=== PATIENT | male | born 1935 | race Caucasian/White ===

== ENCOUNTER 2018-10-09 11:48 | Observation (INO) | payer MEDICARE, OTHER ==
--- NOTE | 2018-10-09 12:19 | ED Physician Documentation ---
PD HPI CHEST PAIN - Stated complaint Stated Complaint: CHEST PRESSURE - Chief complaint Chief Complaint: Cardiac - History obtained from History obtained from: Patient, Family (Daughter) - History of Present Illness Timing - onset: Today (This is an 82-year-old gentleman without history of coronary disease, remotely negative stress test. He does have a history of atrial fibrillation on warfarin. He describes nonradiating anterior chest pressure that woke him up at 3 AM and since then has somewhat improved. Its worse with motion more than exertion. He is never had this before. Denies recent travel, pedal edema, calf pain. He says he has chronic lung congestion but nothing new or acute there. He says he was fine last night, the daughter says he was a little off last night though.) Review of Systems Ten Systems: 10 systems reviewed and negative Constitutional: reports: Fatigue. denies: Fever, Chills Cardiac: reports: Chest pain / pressure. denies: Palpitations, Pedal edema, Calf pain Respiratory: reports: Dyspnea. denies: Cough GI: denies: Abdominal Pain, Nausea, Vomiting PD PAST MEDICAL HISTORY - Past Medical History Past Medical History: Yes Cardiovascular: Atrial fibrillation - Present Medications Home Medications: Ambulatory Orders Medication Instructions Recorded Confirmed Atorvastatin [Lipitor] 20 mg PO DAILY 10/09/18 10/09/18 Losartan Potassium 50 mg PO DAILY 10/09/18 10/09/18 Metoprolol Succinate/Hctz 200 mg PO DAILY 10/09/18 10/09/18 [Metoprolol ER-Hctz 100-12.5 mg] Terazosin [Hytrin] 10 mg PO DAILY PM 10/09/18 10/09/18 Warfarin [Coumadin] 7 mg PO DAILY PM 10/09/18 - Allergies Allergies/Adverse Reactions: Allergies Allergy/AdvReac Type Severity Reaction Status Date / Time No Known Drug Allergies Allergy Verified 10/09/18 12:05 - Social History Does the pt smoke?: No Does the pt drink ETOH?: No Does the pt have substance abuse?: No PD ED PE NORMAL - Vitals Vital signs reviewed: Yes - General General: Alert and oriented X 3, No acute distress - HEENT HEENT: PERRL, EOMI, Pharynx benign - Neck Neck: Supple, no meningeal sign, No bony TTP - Cardiac Cardiac: Other (Irregularly irregular without murmur) - Respiratory Respiratory: No respiratory distress, Clear bilaterally - Abdomen Abdomen: Soft, Non tender - Back Back: No CVA TTP, No spinal TTP - Derm Derm: Normal color, Warm and dry, Other (Quite santoro) - Extremities Extremities: Other (Trace pitting pedal edema, no calf pain.; Symmetric) - Neuro Neuro: Alert and oriented X 3, Normal speech Results - Vitals Vitals: Vital Signs - 24 hr 10/09/18 10/09/18 12:01 12:35 Temperature 36.8 C Heart Rate 83 Respiratory 20 Rate Blood Pressure 161/92 H Blood Pressure 146/97 H [Left] O2 Saturation 95 Oxygen O2 Source Room air - EKG (time done) 1154 Rate: Rate (enter#) (84) Rhythm: Atrial fibrillation [place]: Normal QRS: Normal Ischemia: Non specific changes (He has slight ST elevation in V2 and V3 which is not diagnostic for STEMI. No clear reciprocal changes.) Compare to prior EKG: Old EKG unavailable Computer interpretation: Agree with computer - Labs Labs: Laboratory Tests 10/09/18 10/09/18 10/09/18 12:15 12:15 12:15 WBC 8.5 RBC 4.92 Hgb 14.3 Hct 43.7 MCV 88.8 MCH 29.1 MCHC 32.7 RDW 14.5 Plt Count 130 MPV 11.2 Neut # (Auto) 5.8 Lymph # (Auto) 1.4 L Heard # (Auto) 1.1 H Eos # (Auto) 0.1 Baso # (Auto) 0.0 Absolute Nucleated RBC 0.00 Nucleated RBC % 0.0 PT INR Sodium 138 Potassium 3.9 Chloride 100 L Carbon Dioxide 25 Anion Gap 13.0 BUN 19 Creatinine 0.9 Estimated GFR (MDRD) 81 L Glucose 141 H Calcium 9.0 Total Bilirubin 2.1 H AST 23 ALT 22 Alkaline Phosphatase 64 Troponin I < 0.04 Troponin I High Sens 8.7 Total Protein 6.9 Albumin 4.0 Globulin 2.9 Albumin/Globulin Ratio 1.4 Lipase 41 10/09/18 10/09/18 13:01 13:25 WBC RBC Hgb Hct MCV MCH MCHC RDW Plt Count MPV Neut # (Auto) Lymph # (Auto) Heard # (Auto) Eos # (Auto) Baso # (Auto) Absolute Nucleated RBC Nucleated RBC % PT 36.5 H INR 3.3 H Sodium Potassium Chloride Carbon Dioxide Anion Gap BUN Creatinine Estimated GFR (MDRD) Glucose Calcium Total Bilirubin AST ALT Alkaline Phosphatase Troponin I < 0.04 Troponin I High Sens 8.1 Total Protein Albumin Globulin Albumin/Globulin Ratio Lipase - Rads (name of study) 1v chest Radiology: EMP read contemporaneously (Diffuse increased interstitial markings of unclear chronicity and calcified pleural plaques.) PD MEDICAL DECISION MAKING - ED course ED course: We discussed the findings on chest x-ray, and intermittently he was a little tachypneic here. 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 He feels no more short of breath or congested than normal. On reevaluation after the first high-sensitivity troponin, he pretty much had no chest pressure, a second troponin was ordered. The second troponin was negative. Still a high risk case and I spoke with Dr. Ramirez for admission, the patient vacillated and wondered about being transferred to [place], however they were full as far as telemetry beds go and he agreed to observation here. Departure - Departure Disposition: ED Place in Observation Clinical Impression: Chest pain Qualifiers: Chest pain type: unspecified Qualified Code(s): R07.9 - Chest pain, unspecified Condition: Fair
[2018-10-09 12:31] LABS: BASOPHILS % (AUTO) 0.2 %; EOSINOPHILS # (AUTO) 0.1 10^3/uL (0.0-0.7); EOSINOPHILS % (AUTO) 1.6 %; HGB - HEMOGLOBIN 14.3 g/dL (14.0-18.0); LYMPHOCYTES # (AUTO) 1.4 10^3/uL (1.5-3.5); MEAN CORPUSCULAR HEMOGLOBIN 29.1 pg (27.0-31.0); MEAN CORPUSCULAR HGB CONC 32.7 g/dL (32.0-36.0); MEAN CORPUSCULAR VOLUME 88.8 fL (80.0-94.0); MEAN PLATELET VOLUME 11.2 fL (7.4-11.4); MONOCYTES # (AUTO) 1.1 10^3/uL (0.0-1.0); MONOCYTES % (AUTO) 13.3 %; NEUTROPHILS # (AUTO) 5.8 10^3/uL (1.5-6.6); NEUTROPHILS % (AUTO) 67.6 %; PLT - PLATELET COUNT 130 10^3/uL (130-450); RED BLOOD COUNT 4.92 10^6/uL (4.70-6.10); RED CELL DISTRIBUTION WIDTH 14.5 % (12.0-15.0); WHITE BLOOD COUNT 8.5 x10^3/uL (4.8-10.8)
[2018-10-09 12:46] LABS: ALBUMIN/GLOBULIN RATIO 1.4 (1.0-2.2); BILIRUBIN,TOTAL 2.1 mg/dL (0.2-1.0); CREATININE 0.9 mg/dL (0.6-1.2); TOTAL PROTEIN 6.9 g/dL (6.7-8.2)
--- NOTE | 2018-10-09 12:48 | XRAY Report ---
Reason: Chest Pain Procedure Date: 10/09/2018 Accession Number: [id number] / [id number] Procedure: XR - Chest 1 View X-Ray CPT Code: 28449 FULL RESULT: EXAM: CHEST RADIOGRAPHY EXAM DATE: 10/09/2018 12:34 PM. CLINICAL HISTORY: Chest Pain. COMPARISON: None. TECHNIQUE: 1 view. FINDINGS: Lungs/Pleura: Increased interstitial markings diffusely. Pleural calcifications along the diaphragm. No pleural effusion. No pneumothorax. Mediastinum: Cardiomegaly. Ectatic aorta. Other: None. IMPRESSION: 1. Diffuse increased interstitial markings acute versus chronic differential includes infectious, edema. There are calcified pleural plaques. 2. Cardiomegaly RADIA
[2018-10-09] MEDS ORDERED: NITROGLYCERIN SL 0.4 MG TABLET SL STA (13:00)
[2018-10-09] MEDS ORDERED: ASPIRIN CHEW 81 MG TABLET PO STA (13:00)
[2018-10-09 13:22] LABS: TROPONIN I < 0.04 ng/mL (<0.49)
[2018-10-09 13:25] LABS: INR 3.3 (0.8-1.2); PT - PROTHROMBIN TIME 36.5 secs (9.9-12.6)
[2018-10-09 13:51] LABS: TROPONIN I < 0.04 ng/mL (<0.49)
[2018-10-09] MEDS ORDERED: ACETAMINOPHEN 325 MG TABLET PO PRN (14:03)
[2018-10-09] MEDS ORDERED: SODIUM CHLORIDE FLUSH 0.9% 10 ML SYRINGE IVP PRN (14:03)
[2018-10-09] MEDS ORDERED: oxyCODONE 5 MG TABLET PO PRN (15:15)
[2018-10-09] MEDS ORDERED: ONDANSETRON 4 MG/2 ML VIAL IVP PRN (15:15)
[2018-10-09] MEDS ORDERED: ONDANSETRON ODT 4 MG TABLET TL PRN (15:15)
--- NOTE | 2018-10-09 15:46 | HISTORY & PHYSICAL EXAMINATION ---
Chief Complaint - Chief Complaint Chief Complaint: Substernal chest pain History of Present Illness - Admitted From Admitted From:: Home - History Obtained From Records Reviewed: Spoke with shingle packer Dr. Clemente Hall to obtain pertinent cardiac hx History obtained from: Patient - History of Present Illness HPI Comment/Other: This pleasant gentleman is an 82yo with a PMH of restrictive lung disease, A- fib, Mild mitral regurg, and HDL who presents to the ED today with substernal chest pain. This pain woke him from sleep around 0300 and continued intermittently throughout the morning and early afternoon. It did not radiate to arms, back or abdomen. He did not notice any changes in his breathing. The pain is described as a "knot" or dull ache that is worsened by exertion and resolves with rest. At maximal intensity, he rates the pain a 4-5/10. He took pepto- bismal at home with moderate relief, but not total resolution. He did not exper ience any nausea, vomiting or diaphoresis associated with this chest pain. He has never experienced this type of chest pain before. He denies ever having an NE, diabetes, COPD or cancer of any kind. History - Past Medical History Cardiovascular: reports: High cholesterol, Coronary artery disease, Atrial fibrillation, Other (Prior Echo 06/2017 shows an EF of 58%, mod pulm HTN, and mild mitral regurg) Respiratory: reports: Pneumonia Neuro: reports: None Endocrine/Autoimmune: reports: None GI: reports: None. denies: GERD : reports: None HEENT: reports: None, Macular degeneration (diagnosed in L eye 6 months ago) Psych: reports: None. denies: Depression, Anxiety Musculoskeletal: reports: None Derm: reports: None MRSA Hx?: No - Past Surgical History General: reports: Other (2 ruptured inguinal hernia repairs) - Family & Social History Family History: Mother: (denies any cardiac hx or CA in parents), Father: , Sister: Alzheimer's Disease Family History Comment/Other: Parents both in their late 70s to unknown causes, but patient denies knowing they had any cardiac disease or cancers. He has one sister who has Alzheimer's. 2 daughters, one of which had breast CA and has been in remission [id number]. Living arrangement: At home Living Situation: With spouse/s.o. Social History Notes: Patient and his of 58years live in [place] in the summer months and in [place] the rest of the year. 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 He denies any use of tobacco, never smoker. He is an occassional drinking, 1-2 drinks 3x/week. No use of marijuana or elicits. - Substance History Use: Uses substance without health or social issues: Alcohol Abuse: Recurrent use of substance despite neg consequences: NONE Dependence: Experiences withdrawal or developed tolerances: NONE - POLST Patient has POLST: No Meds/Allgy - Home Medications Home Medications: Ambulatory Orders Medication Instructions Recorded Confirmed Atorvastatin [Lipitor] 20 mg PO DAILY 10/09/18 10/09/18 Losartan Potassium 50 mg PO DAILY 10/09/18 10/09/18 Metoprolol Succinate/Hctz 200 mg PO DAILY 10/09/18 10/09/18 [Metoprolol ER-Hctz 100-12.5 mg] Terazosin [Hytrin] 10 mg PO DAILY PM 10/09/18 10/09/18 Warfarin [Coumadin] 7 mg PO DAILY PM 10/09/18 - Allergies Allergies/Adverse Reactions: Allergies Allergy/AdvReac Type Severity Reaction Status Date / Time No Known Drug Allergies Allergy Verified 10/09/18 12:05 Review of Systems - Eyes Eyes: reports: Vision loss, Corrective lenses - Cardiovascular Cariovascular: reports: Irregular heart rate, Chest pain, Exertional dyspnea, Decr. exercise tolerance - Respiratory Respiratory: reports: SOB with exertion - Neurological Neurological: reports: Numbness (reports having neuropathy in his feet and occassional loss of balance, but no falls) - Psychiatric Psychiatric: denies: Depression, Anxiety, Suicidal - All Other Systems All Other Systems: reports: Reviewed and negative Prior Level of Functionality: He is independent in ADLs and IADLs, in fact he performs most IADL's for him and his who live together in their own home. He ambulates with either a cane or a walker. He goes to physical therapy 3x/week on his own desire due to what he feels is neuropathy in his feet. Exam - Vital Signs Vital Signs: Vital Signs x48h Temp Pulse Resp BP BP Pulse Ox 10/09/18 14:33 98 32 H 142/107 H 95 10/09/18 14:05 91 18 129/82 H 95 10/09/18 12:35 146/97 H 10/09/18 12:01 36.8 C 83 20 161/92 H 95 - Physical Exam General Appearance: positive: Alert, Mild distress (tachypnic throughout conversation) Eyes Bilateral: positive: Normal inspection, PERRL, EOMI, No lid inflammation, Conjunctivae nml, No scleral icterus ENT: positive: ENT inspection nml, No signs of dehydration Neck: positive: Nml inspection, Thyroid nml, No JVD, Trachea midline. negative: Lymphadenopathy (R), Lymphadenopathy (L), Stiff neck, Carotid bruit Respiratory: positive: Chest non-tender, Other Cardiovascular: positive: Irregularly irregular, Systolic murmur (holosystolic, heard loudest over apex) Peripheral Pulses: positive: 2+ Abdomen: positive: Non-tender, No organomegaly, Nml bowel sounds, No distention. negative: Guarding, Rebound Back: positive: Nml inspection. negative: CVA tenderness (R), CVA tenderness (L) Skin: positive: Color nml (very tanned, leathery skin over all extremities), No rash, Warm, Dry Extremities: positive: Non-tender, Full ROM, Nml appearance, Pedal edema (very trace bilateral edema) Neurologic/Psychiatric: positive: Oriented x3, CN's nml (2-12), Motor nml, Mood/affect nml, Sensory loss (slight sensory deficit to bilat feet) Conclusion/Plan - Problem List (1) Chest pain Conclusion/Plan: Dull, achy substernal chest pain that woke pt from sleep. It is intermittent and worsened on exertion. 4-5/10 intensity. Non radiating, not associated with any N/V or diaphoresis. EKG on admit shows A-fib. HEART score of 4. Moderate Risk Plan: -Telemetry monitoring -Repeat 12-lead EKG in setting of symptoms returning -Trend Trops q6hr x3 -Stress test in AM -PRN nitroglycerin Qualifiers: Chest pain type: unspecified Qualified Code(s): R07.9 - Chest pain, unspecified (2) Interstitial lung disease Conclusion/Plan: Patient has been thoroughly worked up for his interstitial lung disease including a lung biopsy 10-15years ago on a mass that was unidentifiable, but concerning for mesothelioma. Patient has mild dyspnea at baseline. Plan: - (3) Atrial fibrillation Conclusion/Plan: Chronic A-fib, anticoagulated with Warfarin. INR on admit mildly elevated at 3.3 Plan: -Hold 1 dose of warfarin tomorrow, then resume -Continue home regimen of metoprolol XL -Daily coags - Lab Results Lab results reviewed: Yes Fish Bones: 10/09/18 12:15 10/09/18 12:15 Other Lab Results: Laboratory Results - last 24 hr 10/09/18 10/09/18 10/09/18 12:15 12:15 12:15 WBC 8.5 RBC 4.92 Hgb 14.3 Hct 43.7 MCV 88.8 MCH 29.1 MCHC 32.7 RDW 14.5 Plt Count 130 MPV 11.2 Neut # (Auto) 5.8 Lymph # (Auto) 1.4 L [place] # (Auto) 1.1 H Eos # (Auto) 0.1 Baso # (Auto) 0.0 Absolute Nucleated RBC 0.00 Nucleated RBC % 0.0 PT INR Sodium 138 Potassium 3.9 Chloride 100 L Carbon Dioxide 25 Anion Gap 13.0 BUN 19 Creatinine 0.9 Estimated GFR (MDRD) 81 L Glucose 141 H Calcium 9.0 Total Bilirubin 2.1 H AST 23 ALT 22 Alkaline Phosphatase 64 Troponin I < 0.04 Troponin I High Sens 8.7 Total Protein 6.9 Albumin 4.0 Globulin 2.9 Albumin/Globulin Ratio 1.4 Lipase 41 10/09/18 10/09/18 13:01 13:25 WBC RBC Hgb Hct MCV MCH MCHC RDW Plt Count MPV Neut # (Auto) Lymph # (Auto) [place] # (Auto) Eos # (Auto) Baso # (Auto) Absolute Nucleated RBC Nucleated RBC % PT 36.5 H INR 3.3 H Sodium Potassium Chloride Carbon Dioxide Anion Gap BUN Creatinine Estimated GFR (MDRD) Glucose Calcium Total Bilirubin AST ALT Alkaline Phosphatase Troponin I < 0.04 Troponin I High Sens 8.1 Total Protein Albumin Globulin Albumin/Globulin Ratio Lipase - Diagnostic Imaging Results Diagnostic Imaging Results: positive: See rad report Diagnostic Imaging Results Comments: Chest XR in ED: 1. Diffuse increased interstitial markings acute versus chronic differential includes infectious, edema. There are calcified pleural plaques. 2. Cardiomegaly - EKG Results EKG Interpreted Independently: Yes EKG Comparison: Old EKG unavailable EKG Findings: A-fib rate controlled
[2018-10-09] MEDS ORDERED: NITROGLYCERIN SL 0.4 MG TABLET SL PRN (16:02)
[2018-10-09] MEDS: SODIUM CHLORIDE FLUSH 0.9% 10 ML SYRINGE IVP SCH (16:37)
[2018-10-09 16:39] LABS: TROPONIN I < 0.04 ng/mL (<0.49)
--- NOTE | 2018-10-09 19:33 | HISTORY & PHYSICAL EXAMINATION ---
DATE OF SERVICE: 10/09/2018 Physician: Philly Ramirez MD PRIMARY CARE PROVIDER: Gurpreet Swift MD, [facility]. COMPUTER ANIMATOR: Clemente Adams MD, [facility]. ADMITTING PROVIDER: Philly Ramirez MD. CHIEF COMPLAINT: Chest pain. HISTORY OF PRESENT ILLNESS: He is an 82-year-old whose cardiac risk factors include male sex, hypertension, and hyperlipidemia. He has known mild mitral valvular heart disease, and chronic atrial fibrillation that is anticoagulated and rate controlled. As part of routine evaluations Holter monitors have been done through the [facility]. He had an echocardiogram done 07/04 that showed a 50% ejection fraction, moderate pulmonary hypertension with 15 mmHg, and mild mitral regurgitation. The left atrium was not particularly dilated. Stress test on the next day on 07/05 was normal and negative for any type of ischemic, fixed or reversible defects. He awoke this morning with substernal chest pain at 3 in the morning. This continued intermittently throughout the morning and into the early hours. It is nonradiating. It did not cause him to be any more short of breath than his chronic dyspnea. It is a dull ache that is worsened by exertion and resolves at rest. He thought it was reflux, so he took Pepto-Bismol and it did not get better. He came to the emergency room, where sublingual nitroglycerin was given. There is no diaphoresis, palpitations that are unusual, nausea. In the emergency room, he was mildly tachypneic, but both he and his daughter states that this is who he is, it is nothing new. He had mildly hypertensive vital signs at 161/92, was saturating 95% on room air. EKG had nonspecific changes, mild ST elevations that was not diagnostic of a STEMI. Initial troponins were less than 0.04, and a second set less than 0.04, but because of his risk factors, risk score calculates him at moderate risk with 4 points, the patient should be brought in for rule-out AK. He does have extensive plaque changes on his chest x-ray. He states that he is already followed by primary care provider [facility]. He has had a workup in the past. He has lost his primary care provider in intermediate, and he has a new primary care provider named Gurpreet Swift that he has only met for the first time. PAST MEDICAL HISTORY 1. Chronic atrial fibrillation. 2. Hyperlipidemia. 3. Hypertension. 4. Mild prostatism. ALLERGIES: NO KNOWN DRUG ALLERGIES. MEDICATIONS 1. Lipitor 20 mg daily. 2. Losartan 50 mg daily. 3. Metoprolol with hydrochlorothiazide 104/12.5 mg b.i.d. 4. Hytrin 10 mg daily. 5. Coumadin 7 mg daily. SOCIAL HISTORY: Nonsmoker, rare alcohol drinker. 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 He lives in [place] in the summer and [place] the rest of the year. He denies any history of recreational substance abuse. FAMILY HISTORY 1. Both parents in their 70s of unknown causes. He does not recall if they had heart disease or cancer. 2. One sister had Alzheimer's. 3. Two daughters, one of which has had breast cancer. REVIEW OF SYSTEMS CONSTITUTIONAL: He had no antecedent constitutional complaints of fevers, chills, sweats, unexpected weight changes. HEENT: He wears glasses, denies glaucoma or cataracts. Mild deafness. No problems with his teeth, swallowing, facial dysesthesia. PULMONARY: Always has chronic chest congestion. He says it is a given for him. Occasionally a mild cough, but nonproductive. Never had hemoptysis. He says that he has been well worked up for the abnormal x-ray changes that we see on chest x-ray. CARDIOVASCULAR: Because of his lungs, he cannot move as much as he used to when he was a younger man. He has never had chest pain before. No edema. No orthopnea. GASTROINTESTINAL: Denies abdominal pain, change in bowel habits, bloody stool, diarrhea. GENITOURINARY: Occasional nocturia at night, slight decreased stream with urination, but not severe enough to warrant treatment. No flank pain. No hematuria. JOINTS: Denies significant joint pain. His hands are stiff, and occasionally low back ache, but nothing severe. DERMATOLOGIC: No new lesions. No rashes. No pruritus. NEUROLOGIC: He does not have a history of falls, seizures, ataxia. PSYCHIATRIC: Denies depression, anxiety, hallucinations, history of delirium. PREVIOUS LEVEL OF FUNCTION: He is independent with regard to dressing himself, feeding himself. He walks with a cane or walker. Goes to physical therapy for neuropathy in his feet. He still drives a car. Pays bills. Daughter does most of the brunt of the work with running the company now. PHYSICAL EXAMINATION VITAL SIGNS: Temperature is 37.1. He is now on med/surg. Pulse is 96. Blood pressure 144/92. Respirations 22. Highest respirations were 32 in the ED as [facility]. He is 95% on room air. GENERAL: At 6 feet tall, he is 101 kg and a deeply, deeply tanned guy's santoro white male who looks his stated age. HEENT: Head and neck, other than the santoro, is unremarkable. Normocephalic, atraumatic. Pupils are reactive. Sclerae slightly muddy. Good oral hygiene and no sign of dehydration. NECK: Supple without goiter or bruits. CARDIAC: Irregular rate and rhythm. Slightly tachycardic and is consistently in the 90s. He does have a slight muffled S2 sound, not quite diastolic murmur. Slight systolic murmur at the apex and left lower sternal border that is nonradiating. ABDOMEN: Soft, nontender. No organomegaly. EXTREMITIES: Knobby deformities of osteoarthritis, but no clubbing, cyanosis, or edema. NEUROLOGIC: He is alert and oriented to person, place, and time, follows 2-step commands, and mobility seems to be limited more by stiffness and dyspnea. He says this is chronic for him. LABORATORY DATA: Sodium 138, potassium 3.9, BUN 19, creatinine 0.9, glucose 141. Total bilirubin 2.1. Troponin I, II, and III at 1215, 1325, and 1615 are all less than 0.04. High sensitivity troponins are 8.7, 8.1, and 6.6. White cell count is 8.5, hemoglobin 14.3, hematocrit 43.7, platelets 130. INR is 3.3. Chest x-ray has diffuse increased interstitial markings, acute versus chronic. Differential diagnosis includes infectious, edema, and he has calcified pleural plaques, with cardiomegaly. Ectatic aorta. EKG has atrial fibrillation with a QRS access at 16. R-wave progression is normal. Minimal ST elevation in leads V2, V3. ASSESSMENT PLAN 1. Chest pain in a gentleman who has cardiac risk factors, moderate HEART score of 4 points. a. Observation/Admit. b. Serial troponins. c. Aspirin and to continue beta delmar. d. Nuclear medicine stress test tomorrow. 2. Cardiac risk factor adjustment will be ongoing. He will be continued on aspirin, statin, and beta delmar. 3. Hypertension. Blood pressure varies between 129 systolic up to as high as 161 systolic. Diastolic consistently elevated at 92 to 107. This gentleman is on an NOELLE inhibitor, beta delmar, diuretic, and alpha delmar. He is followed by his auditing specialist on a regular basis. I discussed the case with Dr. Clemente Adams to review history with him. Dr. Adams will see the patient in followup. He is amenable to our plan of rule out myocardial infarction with serial enzymes and a stress test tomorrow. 4. Chronic atrial fibrillation. INR is slightly greater than 3 at 3.3 today. We will hold 1 dose of Coumadin. Resume usual dose. Rate control is adequate. 5. Interstitial Pulmonary fibrosis with pleural plaquing. He is solidly firmly stating that this is a known diagnosis and has been evaluated. He does not want any further work up here. I was going to get old records from his PCP but after waiting 20 minutes on hold, knowing it would not change cardiac evaluation, I opted to not pursue the diagnosis or it's workup. 6. FULL CODE STATUS. 7. Deep venous thrombosis prophylaxis is moot, since the patient is anticoagulated. TD: 10/09/2018 17:01 VARUN
[2018-10-09 19:48] LABS: TROPONIN I < 0.04 ng/mL (<0.49)
[2018-10-09] MEDS ORDERED: TERAZOSIN 5 MG CAPSULE PO SCH (21:00)
[2018-10-10] MEDS: SODIUM CHLORIDE FLUSH 0.9% 10 ML SYRINGE IVP SCH ×2 (01:33→08:47)
[2018-10-10 01:51] LABS: TROPONIN I < 0.04 ng/mL (<0.49)
[2018-10-10] MEDS ORDERED: METOPROLOL SUCCINATE 50 MG TABLET PO SCH (09:00)
[2018-10-10] MEDS ORDERED: POLYETHYLENE GLYCOL 3350 17 GM PACKET PO SCH (09:00)
[2018-10-10] MEDS ORDERED: ATORVASTATIN 10 MG TABLET PO SCH (09:00)
[2018-10-10] MEDS ORDERED: LOSARTAN 50 MG TABLET PO SCH (09:00)
[2018-10-10] MEDS ORDERED: REGADENOSON 0.4 MG/5 ML SYRINGE IVP ONE ×2 (10:00→11:58)
[2018-10-10] MEDS ORDERED: AMINOPHYLLINE 250 MG/10 ML VIAL ONE (11:09)
--- NOTE | 2018-10-10 14:26 | CARDIAC PROCEDURE NOTE ---
DATE OF SERVICE: 10/10/2018 Physician: Matilda Mcdaniel MD CC to: DR Gurpreet Swift INDICATIONS: Chest pain. CARDIAC RISK FACTORS 1. Advanced age. 2. Male gender. 3. Hyperlipidemia. 4. Hypertension. DESCRIPTION OF PROCEDURE: After signing informed consent, patient underwent a pharmaceutical stress test using Lexiscan with nuclear myocardial perfusion imaging. RESTING HEART RATE: 86. PEAK HEART RATE: 95. RESTING BLOOD PRESSURE: 138/84. PEAK BLOOD PRESSURE: 140/70. Lexiscan was infused per protocol. Patient had no chest pain, shortness of breath or any other side effects. RESTING EKG: Atrial fibrillation, QS waves in V1 and V2. EKG AT PEAK: No new ST segment or T-wave abnormalities. SUMMARY 1. Abnormal resting EKG showing fibrillation and possible anteroseptal myocardial infarction, old. 2. No new ST segment or T-wave abnormalities following pharmaceutical stress. 3. Nuclear images reported separately. cc: MD Gurpreet Herrera MD TD: 10/10/2018 13:28 MTDD
--- NOTE | 2018-10-10 14:50 | Nuclear Medicine Report ---
Reason: CP Procedure Date: 10/10/2018 Accession Number: [id number] / [id number] Procedure: NM - Myocardial Perfusion STR/RST CPT Code: FULL RESULT: EXAM: SINGLE-ISOTOPE PHARMACOLOGICAL STRESS TEST WITH REGADENOSON. SINGLE-ISOTOPE AND ONE-DAY REST/STRESS MYOCARDIAL PERFUSION SCANS WITH TOMOGRAPHIC IMAGING, QUANTITATIVE ANALYSIS, WALL MOTION ANALYSIS AND CALCULATION OF EJECTION FRACTION. EXAM DATE: 10/10/2018 12:18 PM. CLINICAL HISTORY: Chest pain. COMPARISON: None available. TECHNIQUE: After the intravenous administration of 10.3 mCi of Tc-99m sestamibi, a rest myocardial perfusion scan was done with tomography. Motion correction was applied when appropriate. After an appropriate delay, pharmacological stress was performed with the infusion of 0.4 mg regadenoson per protocol. According to protocol, 43.6 mCi of Tc-99m sestamibi was injected for stress myocardial perfusion scan. Motion correction was applied when appropriate. Gated tomographic images were obtained for wall motion analysis and computation of left ventricular ejection fraction. FINDINGS: On visual analysis, no convincing significant fixed or reversible perfusion defects are evident. Computer analysis: Summed stress score 3 Summed rest score 0 Summed difference score 3 Wall motion analysis demonstrates no focal wall motion abnormality. The left ventricular end-diastolic volume is 78 cc. The left ventricular end-systolic volume is 30 cc. The left ventricular ejection fraction is calculated to be 61%. IMPRESSION: 1. On visual analysis, no fixed or reversible perfusion defects are evident. 2. Left ventricular ejection fraction of 61%. 3. Normal segmental and global wall motion. 4. Normal left ventricular cavity size, no change with stress. 5. Based on computer analysis, normal study with mild ischemia. Please correlate findings with stress ECG tracings and procedure notes. [facility]
[2018-10-10 15:28] VITALS: BP 115/98
--- NOTE | 2018-10-10 15:32 | Discharge Plan ---
Discharge Plan Problem Reviewed?: Yes Disposition: Home, Self Care Condition: Stable Diet: Cardiac Activity Restrictions: Activity as Tolerated Shower Restrictions: No Driving Restrictions: No Health Concerns: Evaluation of chest pain with blood tests and stress testing. Plan of Treatment: Continue all your usual medications. Call your [employer] office regarding whether you need an office visit. Care Goals: A final diagnosis of what caused your chest pain has not been established yet, but there was no heart attack and a stable stress test. See your PCP for evaluation and possible other testing as well. Assessment: The patient is agreeable with the plan. Additional Instructions or Follow Up instructions: If you have new or worsening symptoms, call your PCP or [employer], or come to the ER. No Smoking: If you smoke, Please STOP! Call for help. Follow-up with: Gurpreet Swift MD [Physician No Access] -
--- NOTE | 2018-10-11 12:41 | DISCHARGE SUMMARY ---
Discharge Summary Admit Date: 10/09/18 Discharge Date: 10/10/18 Discharging Provider: Dr Matilda Mcdaniel Primary Care Provider: Dr Gurpreet Swift Code Status: Attempt Resuscitation Condition at Discharge: Stable Discharge Disposition: 01 Home, Self Care - DIAGNOSES Admission Diagnoses: 1) Chest pain, new onset 2) Chronic Afib, on Coumadin 3) Hx of pulmonary fibrosis 4) Hx of HTN Discharge Diagnoses with Status of Each Condition: See below - HPI History of Present Illness: As per admission H&P of Dr Ramirez: This pleasant gentleman is an 82yo with a PMH of restrictive lung disease, A- fib, Mild mitral regurg, and HDL who presents to the ED today with substernal chest pain. This pain woke him from sleep around 0300 and continued intermittently throughout the morning and early afternoon. It did not radiate to arms, back or abdomen. He did not notice any changes in his breathing. The pain is described as a "knot" or dull ache that is worsened by exertion and resolves with rest. At maximal intensity, he rates the pain a 4-5/10. He took pepto- bismal at home with moderate relief, but not total resolution. He did not experience any nausea, vomiting or diaphoresis associated with this chest pain. He has never experienced this type of chest pain before. He denies ever having an VT, diabetes, COPD or cancer of any kind. - CONSULTS | PROCEDURES Procedures: Pharmaceutical stress test with Lexiscan and Nuclear Myocardial Perfusion Imagin g - HOSPITAL COURSE Hospital Course: 1) Chest pain His troponins were normal x3. There were no new EKG changes. He had no recurrence of chest pain and underwent a Lexiscan pharmaceutical stress test. He had no symptoms during that. The nuclear portion was read as essentially normal. He was advised to discuss further evaluation and management with his Cardi ologist and his PCP. 2) HTN His BP meds were continued while here. 3) Chronic Afib. His heart rate was under good control on his home Metoprolol dose. He was an Coumadin with INR of 3.3. He is established with a [employer], who follows him for this. 4) Interstitial pulmonary fibrosis. Patient has been thoroughly worked up for his interstitial lung disease including a lung biopsy 10-15years ago from a mass. Patient has mild dyspnea at baseline. He does not require home O2. - ALLERGIES Allergies/Adverse Reactions: Allergies Allergy/AdvReac Type Severity Reaction Status Date / Time No Known Drug Allergies Allergy Verified 10/09/18 12:05 - MEDICATIONS Home Medications: Ambulatory Orders Medication Instructions Recorded Confirmed RX: Atorvastatin [Lipitor] 20 mg PO DAILY 10/09/18 10/09/18 RX: Losartan Potassium 50 mg PO DAILY 10/09/18 10/09/18 RX: Metoprolol Succinate [Toprol 200 mg PO DAILY 10/09/18 10/09/18 Xl] RX: Terazosin [Hytrin] 10 mg PO DAILY PM 10/09/18 10/09/18 RX: Warfarin [Coumadin] 5 mg PO MOWEFR 10/09/18 10/09/18 RX: Warfarin [Coumadin] 7 mg PO SUTUTHSA 10/09/18 10/09/18 - PHYSICAL EXAM AT DISCHARGE General Appearance: positive: No acute distress, Alert Eyes Bilateral: positive: Normal inspection, PERRL ENT: positive: No signs of dehydration Neck: positive: Nml inspection Respiratory: positive: No respiratory distress Cardiovascular: positive: Other (Irreg Irreg) Skin: positive: Color nml, Warm, Dry Extremities: positive: No pedal edema Neurologic/Psychiatric: positive: Oriented x3, Other (No focal abnormality) - LABS Result Diagrams: 10/09/18 12:15 10/09/18 12:15 - DIAGNOSTIC IMAGING Diagnostic Imaging Results: Final report reviewed - FOLLOW UP Follow Up: See PCP and call for Cardiology appointment. - TIME SPENT Time Spent in Discharge (Minutes): 30
== END 2018-10-10 16:11 | disposition home or self-care (01) ==
LOC: ED 11:48 → MS2 14:03
PROVIDERS: ADMIT Specialist; ATTEND Internal Medicine
DX: R07.89 Other chest pain (principal); I10 Essential (primary) hypertension; I48.2 Chronic atrial fibrillation; Z79.01 Long term (current) use of anticoagulants; J84.10 Pulmonary fibrosis, unspecified; I25.10 Atherosclerotic heart disease of native coronary artery without angina pectoris; E78.5 Hyperlipidemia, unspecified
CPT/HCPCS: 36415; 71045; 78452; 80053; 83690; 84484; 85025; 85610; 93005; 93017; 96374; 99285; A9270; A9500; G0378; J2785